=== PATIENT | female | born 1985 | race Caucasian/White ===

== ENCOUNTER 2020-02-09 11:03 | Observation (INO) | payer OTHER ==
[~2020-02-09] VITALS: Ht 160 cm; Wt 162.2 kg
--- NOTE | 2020-02-09 11:19 | NUR ---
GEETHA-Lindsay IS AT THE BEDSIDE FOR ASSESSMENT
[2020-02-09] MEDS ORDERED: SODIUM CHLORIDE FLUSH 10ML SYR IVF ONE (11:30)
[2020-02-09] MEDS ORDERED: ONDANSETRON 2MG/ML, 2ML IVPush ONE (11:30)
[2020-02-09] MEDS ORDERED: ONDANSETRON 2MG/ML, 2ML ONE ×2 (11:55→19:03)
[2020-02-09] MEDS ORDERED: MORPHINE SULFATE 4 MG/ML, 1ML ONE ×3 (11:56→14:59)
[2020-02-09] MEDS: MORPHINE SULFATE 4 MG/ML, 1ML IVPush PRN ×2 (12:02→12:37)
--- NOTE | 2020-02-09 12:05 | NUR ---
pt to ct w tech
[2020-02-09 12:18] LABS: BASOPHILS # (AUTO) 0.03 x10^3/uL (0-0.1); BASOPHILS % (AUTO) 0 % (0-1); EOSINOPHILS # (AUTO) 0.04 x10^3/uL (0-0.4); EOSINOPHILS % (AUTO) 0 % (1-7); LYMPHOCYTES # (AUTO) 1.18 x10^3/uL (1-3.4); LYMPHOCYTES % (AUTO) 9 % (22-44); MD NO; MEAN CORPUSCULAR HEMOGLOBIN 28.2 pg (27.0-34.8); MEAN CORPUSCULAR HGB CONC 32.8 g/dL (32.4-35.8); MEAN CORPUSCULAR VOLUME 86.1 fL (80-100); MEAN PLATELET VOLUME 10.7 fL (7.4-10.4); MONOCYTES # (AUTO) 0.49 x10^3/uL (0.2-0.8); MONOCYTES % (AUTO) 4 % (2-9); NEUTROPHILS # (AUTO) 11.87 x10^3/uL (1.8-6.8); NEUTROPHILS % (AUTO) 87 % (42-75); PLATELET COUNT 304 x10^3/uL (130-400); RED BLOOD COUNT 5.02 x10^6/uL (3.82-5.3); RED CELL DISTRIBUTION WIDTH 14.5 % (9.6-15.2)
[2020-02-09 12:30] LABS: ALBUMIN 3.7 g/dL (3.4-5.0); ANION GAP 7 mmol/L (5-15); CALCIUM 8.8 mg/dL (8.5-10.1); CHLORIDE 109 mmol/L (98-107); CREATININE 0.76 mg/dL (0.55-1.02)
--- NOTE | 2020-02-09 12:30 | NUR ---
PT RETURNED FROM CT W TECH. PAIN IS IMPROVED, BUT PERSISTENT. I WILL MEDICATE ORDERED WHILE AWAITING ULTRASOUND.
--- NOTE | 2020-02-09 14:24 | NUR ---
PT AMBULATED TO THE RESTROOM FROM [facility] WITH A STEADY GAIT. URINE SAMPLE PROVIDED, AND WALKED TO THE LAB FOR ANALYSIS.
[2020-02-09 14:43] LABS: MICROSCOPIC INDICATED
--- NOTE | 2020-02-09 14:47 | NUR ---
PT TO ULTRASOUND WITH TECH
--- NOTE | 2020-02-09 15:06 | NUR ---
LAYSSA (RN) IS ASSUMING CARE OF THIS PT WHILE I HAVE A LUNCH BREAK. SBAR REPORT WAS EXCHANGED AT THE BEDSIDE.
--- NOTE | 2020-02-09 15:17 | NUR ---
BREAK RN: DR. WINTER IN ROOM DISCUSSING PLAN OF CARE.
[2020-02-09 15:20] VITALS: BP 139/87
[2020-02-09] MEDS ORDERED: MORPHINE SULFATE 4 MG/ML, 1ML IVPush PRN (15:30)
--- NOTE | 2020-02-09 15:47 | NUR ---
surgeon is at the bedside for consult
--- NOTE | 2020-02-09 16:15 | NUR ---
ERP IS AT THE [facility]
--- NOTE | 2020-02-09 16:24 | NUR ---
VERBAL SBAR EXCHANGED Mic GREEN (VALERIY) IN THE O.R. WE WILL BEGIN TO PREPARE FOR TRANSPORT AT THIS TIME.
[2020-02-09] MEDS ORDERED: MIDAZOLAM 1 MG/ML, 2ML ONE (16:44)
[2020-02-09] MEDS ORDERED: FENTANYL PF 250 MCG/5ML ONE (16:45)
[2020-02-09] MEDS ORDERED: MIDAZOLAM 1 MG/ML, 2ML IV PRN (17:00)
[2020-02-09] MEDS ORDERED: MEPERIDINE/PF 25MG/0.5ML IVPush PRN (17:00)
[2020-02-09] MEDS ORDERED: PROMETHAZINE 25 MG/ML, 1ML IVPush PRN (17:00)
[2020-02-09] MEDS ORDERED: OXYcodone 5 MG/5 ML ORAL.SOL UDC PO PRN (17:00)
[2020-02-09] MEDS ORDERED: ONDANSETRON 2MG/ML, 2ML IVPush PRN (17:00)
[2020-02-09] MEDS ORDERED: hydrALAzine 20 MG/ML, 1ML IV PRN (17:00)
[2020-02-09] MEDS ORDERED: LABETALOL 5MG/ML, 20ML IV PRN (17:00)
[2020-02-09] MEDS ORDERED: HYDROmorphone 1 MG/ML, 1ML INJ IVPush PRN (17:00)
[2020-02-09] MEDS ORDERED: ACETAMINOPHEN 325 MG TABLET PO PRN (17:00)
[2020-02-09] MEDS ORDERED: BUPIVACAINE/PF-EPI 0.25% 1:200K ONE (17:11)
[2020-02-09 17:16] LABS: HCG UR SG 1.029 (1.003-1.030)
[2020-02-09] MEDS ORDERED: CEFAZOLIN 1,000 MG ONE (17:34)
[2020-02-09] MEDS ORDERED: DEXAMETHASONE 4 MG/ML, 1ML ONE ×2 (17:45)
[2020-02-09] MEDS ORDERED: BUPIVACAINE/PF-EPI 0.25% 1:200K INFIL ONE (18:19)
[2020-02-09] MEDS ORDERED: KETOROLAC 30 MG/1 ML ONE ×2 (18:56→20:25)
[2020-02-09] MEDS ORDERED: ROCURONIUM 10MG/ML,5ML ONE (18:56)
[2020-02-09] MEDS ORDERED: PROPOFOL 10 MG/ML, 20ML ONE (18:56)
[2020-02-09] MEDS ORDERED: SUCCINYLCHOLINE 20 MG/ML, 10ML ONE (18:56)
[2020-02-09] MEDS ORDERED: GLYCOPYRROLATE 0.2MG/1ML, 5ML ONE (19:14)
[2020-02-09] MEDS ORDERED: NEOSTIGMINE 1 MG/ML, 10ML ONE (19:14)
[2020-02-09] MEDS ORDERED: FENTANYL PF 100 MCG/2ML ONE (19:52)
[2020-02-09] MEDS: FENTANYL PF 100 MCG/2ML IV PRN ×2 (19:53→20:21)
[2020-02-09] MEDS ORDERED: ACETAMINOPHEN 650 MG/20.3 ML UDC ONE (20:25)
[2020-02-09] MEDS ORDERED: OXYcodone 5 MG/5 ML ORAL.SOL UDC ONE (20:25)
[2020-02-09] MEDS ORDERED: KETOROLAC 30 MG/1 ML IVPush PRN (20:30)
[2020-02-09] MEDS ORDERED: ONDANSETRON 2MG/ML, 2ML IV PRN (22:00)
[2020-02-09] MEDS ORDERED: KETOROLAC 30 MG/1 ML IV PRN (22:00)
[2020-02-09] MEDS ORDERED: OXYcodone IR 5MG TABLET PO PRN (22:00)
[2020-02-09] MEDS ORDERED: OXYC5TAB2 PO (22:10)
[2020-02-09] MEDS ORDERED: ACET325C6 PO (22:13)
[2020-02-09] MEDS ORDERED: IBUP-1222 PO (22:15)
[2020-02-09] MEDS ORDERED: CEPH-368 PO (22:16)
[2020-02-09] MEDS ORDERED: DOCU-131 PO (22:16)
== END 2020-02-09 23:15 | disposition home or self-care (01) ==
LOC: ED 12:25 → EDIP 16:07 → 4NE 21:05
PROVIDERS: ADMIT Student in an Organized Health Care Education/Training Program; ATTEND Student in an Organized Health Care Education/Training Program
DX: Z03.818 Encounter for observation for suspected exposure to other biological agents ruled out (principal); N83.01 Follicular cyst of right ovary; N83.511 Torsion of right ovary and ovarian pedicle; N83.8 Other noninflammatory disorders of ovary, fallopian tube and broad ligament; I10 Essential (primary) hypertension; E66.01 Morbid (severe) obesity due to excess calories
CPT/HCPCS: 36415; 58661; 74176; 76830; 80048; 81001; 81025; 82040; 85025; 87635; 88305; 96374; 96375; 96376; 99285; G0378; J0330; J0690; J1100; J1885; J2250; J2270; J2405; J2704; J2710; J3010